=== PATIENT | male | born 1970 | race Two or more races ===

== ENCOUNTER 2022-12-18 23:58 | Inpatient (IN) | payer MEDICAID, OTHER ==
[~2022-12-18] VITALS: Ht 170.2 cm; Wt 115.0 kg
[2022-12-19 00:59] LABS: Basophils # (auto) 0.1 10 ^3/uL (0-0.2); Basophils % (auto) 0.8 % (0.0-2.0); Eosinophils # (auto) 0.2 10 ^3/uL (0-0.8); Eosinophils % (auto) 3.2 % (0.0-7.0); Hematocrit 42.9 % (41.0-53.0); Hemoglobin 14.8 g/dL (13.5-17.5); Lymphocytes # (auto) 1.4 10 ^3/uL (0.4-5.4); Lymphocytes % (auto) 19.2 % (10.0-50.0); Mean Corpuscular Hgb Conc. 34.6 g/dL (32.0-36.0); Mean Corpuscular Volume 92.7 fL (80.0-100.0); Monocytes # (auto) 1.1 10 ^3/uL (0-1.3); Monocytes % (auto) 14.2 % (0.0-12.0); Neutrophils # (auto) 4.7 10 ^3/uL (1.6-8.6); Neutrophils % (auto) 62.6 % (37.0-80.0); Nucleated Red Blood Cells % 0.1 %; Red Blood Cells 4.63 10^6/uL (4.5-5.90); Red Cell Distribution Width 13.2 % (11.8-14.3); White Blood Cell 7.5 10^3/uL (4.4-10.8)
[2022-12-19 01:19] LABS: Albumin 3.3 g/dL (3.4-5.0); BUN/Creatinine Ratio 19.5; Calcium 9.1 mg/dL (8.5-10.1); Potassium 3.9 mmol/L (3.5-5.1)
[2022-12-19 01:22] LABS: Bilirubin, Total 0.8 mg/dL (0.2-1.0); Total Protein 7.1 g/dL (6.4-8.2)
[2022-12-19] MEDS ORDERED: amLODIPine BESYLATE 5 MG TAB PO ONE (01:30)
[2022-12-19] MEDS ORDERED: ASPirin 81 mg TAB PO ONE (02:00)
[2022-12-19] MEDS ORDERED: cefTRIAXone 1GM/50ML D5W 50 ML IV ONE (02:00)
[2022-12-19] MEDS ORDERED: FUROSEMIDE 20 MG/2 ML VIAL IV ONE (02:00)
[2022-12-19] MEDS ORDERED: AZITHROMYCIN 250 MG TAB PO ONE (02:30)
[2022-12-19 04:09] LABS: Urine Bacteria NONE SEEN /hpf (None Seen); Urine Blood Negative /uL (Negative); Urine Specific Gravity 1.011 (1.001-1.035); Urine WBC <1 /hpf (0 - 3)
[2022-12-19] MEDS ORDERED: NITROGLYCERIN 0.4 MG SL TAB SL PRN (06:30)
[2022-12-19] MEDS ORDERED: ACETAMINOPHEN 325 MG TAB PO PRN (06:30)
[2022-12-19] MEDS ORDERED: TEMAZEPAM 15 MG CAP PO PRN (06:30)
[2022-12-19] MEDS ORDERED: hydrALAZINE HCL 20 MG/ML VL IV PRN (06:30)
[2022-12-19] MEDS ORDERED: HYDROcodone-ACET 5/325MG TAB PO PRN (06:30)
[2022-12-19] MEDS ORDERED: DEXTROSE (50%) 50ML SYRG IV PRN (06:30)
[2022-12-19] MEDS ORDERED: MORPHINE SULFATE INJ 2 MG/ml SYRG IV PRN (06:30)
[2022-12-19] MEDS ORDERED: ONDANSETRON HCL 4 MG/2 ML VIAL IV PRN (06:30)
[2022-12-19] MEDS: ACCU-CHEK COMFORT CURVE STRIP VI SCH ×4 (06:49→22:00)
[2022-12-19] MEDS: InsuLIN REG 1unit/0.01ml Soln (100units/ml) SC SCH ×4 (06:53→22:00)
[2022-12-19] MEDS ORDERED: cefTRIAXone 1GM/50ML D5W 50 ML IV SCH (09:00)
[2022-12-19] MEDS ORDERED: FUROSEMIDE 40 MG TAB PO SCH (10:00)
[2022-12-19] MEDS ORDERED: AZITHROMYCIN 500MG/ 250ML 250 ML IV SCH (10:00)
[2022-12-19] MEDS ORDERED: ASPirin 81 mg TAB PO SCH (10:00)
[2022-12-19] MEDS: ENOXAPARIN SOD 40 MG/0.4 ML SYRINGE SC SCH (10:25)
[2022-12-19] MEDS: PANTOPRAZOLE 40 MG TAB PO SCH (10:26)
[2022-12-19] MEDS: CARVEDILOL 3.125 MG TAB PO SCH ×2 (10:27→22:34)
[2022-12-19] MEDS: LISINOPRIL 10 MG TAB PO SCH (10:27)
[2022-12-19] MEDS ORDERED: ATORVASTATIN 20 MG TAB PO SCH (22:00)
[2022-12-19] MEDS: ATORVASTATIN 20 MG TAB PO SCH (22:32)
[2022-12-19 23:00] VITALS: BP 162/97
[2022-12-20 05:00] VITALS: BP 178/103
[2022-12-20 06:11] LABS: Basophils # (auto) 0.1 10 ^3/uL (0-0.2); Basophils % (auto) 1.2 % (0.0-2.0); Eosinophils # (auto) 0.3 10 ^3/uL (0-0.8); Eosinophils % (auto) 3.4 % (0.0-7.0); Hematocrit 42.2 % (41.0-53.0); Hemoglobin 14.8 g/dL (13.5-17.5); Lymphocytes # (auto) 1.4 10 ^3/uL (0.4-5.4); Mean Corpuscular Hemoglobin 32.3 pg (28.0-32.0); Mean Corpuscular Volume 92.3 fL (80.0-100.0); Monocytes # (auto) 1.2 10 ^3/uL (0-1.3); Monocytes % (auto) 11.8 % (0.0-12.0); Neutrophils % (auto) 69.6 % (37.0-80.0); Nucleated Red Blood Cells % 0.5 %; Red Blood Cells 4.57 10^6/uL (4.5-5.90); White Blood Cell 10.1 10^3/uL (4.4-10.8)
[2022-12-20] MEDS: InsuLIN REG 1unit/0.01ml Soln (100units/ml) SC SCH ×4 (06:21→21:45)
[2022-12-20] MEDS: ACCU-CHEK COMFORT CURVE STRIP VI SCH ×4 (06:21→21:39)
[2022-12-20] MEDS ORDERED: cloNIDine HCL 0.1 MG TAB PO ONE (06:30)
[2022-12-20 06:32] LABS: Potassium 3.7 mmol/L (3.5-5.1)
[2022-12-20 06:40] LABS: Albumin 3.5 g/dL (3.4-5.0); BUN/Creatinine Ratio 17.1; Bilirubin, Total 1.1 mg/dL (0.2-1.0); Calcium 8.6 mg/dL (8.5-10.1); Total Protein 6.6 g/dL (6.4-8.2)
[2022-12-20 09:00] VITALS: BP 185/121
[2022-12-20] MEDS: FUROSEMIDE 40 MG/4 ML VIAL IV SCH (09:08)
[2022-12-20] MEDS: ASPirin 81 mg TAB PO SCH (09:08)
[2022-12-20] MEDS: ENOXAPARIN SOD 40 MG/0.4 ML SYRINGE SC SCH (09:08)
[2022-12-20] MEDS: LISINOPRIL 10 MG TAB PO SCH (09:09)
[2022-12-20] MEDS: CARVEDILOL 3.125 MG TAB PO SCH ×2 (09:09→21:39)
[2022-12-20] MEDS: PANTOPRAZOLE 40 MG TAB PO SCH (09:09)
[2022-12-20] MEDS ORDERED: LISINOPRIL 20 MG TAB PO ONE (11:45)
[2022-12-20 12:54] VITALS: BP 155/73
[2022-12-20] MEDS ORDERED: TAMSULOSIN HYDROCHLORIDE 0.4 MG CAP PO SCH (18:00)
[2022-12-20] MEDS: ATORVASTATIN 20 MG TAB PO SCH (21:38)
[2022-12-20 22:00] VITALS: BP 151/76
[2022-12-21 05:00] VITALS: BP 165/99
[2022-12-21] MEDS: InsuLIN REG 1unit/0.01ml Soln (100units/ml) SC SCH ×3 (06:18→17:00)
[2022-12-21] MEDS: ACCU-CHEK COMFORT CURVE STRIP VI SCH ×3 (06:18→17:00)
[2022-12-21 06:27] LABS: Basophils # (auto) 0 10 ^3/uL (0-0.2); Basophils % (auto) 0.6 % (0.0-2.0); Eosinophils # (auto) 0.3 10 ^3/uL (0-0.8); Eosinophils % (auto) 3.4 % (0.0-7.0); Hematocrit 41.3 % (41.0-53.0); Hemoglobin 14.5 g/dL (13.5-17.5); Lymphocytes # (auto) 1.2 10 ^3/uL (0.4-5.4); Lymphocytes % (auto) 14.9 % (10.0-50.0); Mean Corpuscular Hemoglobin 31.9 pg (28.0-32.0); Mean Corpuscular Volume 91.1 fL (80.0-100.0); Monocytes # (auto) 1.1 10 ^3/uL (0-1.3); Monocytes % (auto) 13.4 % (0.0-12.0); Neutrophils # (auto) 5.4 10 ^3/uL (1.6-8.6); Neutrophils % (auto) 67.7 % (37.0-80.0); Red Blood Cells 4.53 10^6/uL (4.5-5.90); Red Cell Distribution Width 12.9 % (11.8-14.3)
[2022-12-21 06:46] LABS: Albumin 3.4 g/dL (3.4-5.0); Calcium 8.5 mg/dL (8.5-10.1); Potassium 3.5 mmol/L (3.5-5.1)
[2022-12-21 06:52] LABS: BUN/Creatinine Ratio 17.9; Total Protein 6.7 g/dL (6.4-8.2)
[2022-12-21] MEDS ORDERED: EMPAGLIFLOZIN 10 MG TAB PO SCH (07:00)
[2022-12-21 08:00] VITALS: BP 177/96
[2022-12-21] MEDS: FUROSEMIDE 40 MG/4 ML VIAL IV SCH (08:34)
[2022-12-21] MEDS: ENOXAPARIN SOD 40 MG/0.4 ML SYRINGE SC SCH (08:34)
[2022-12-21] MEDS: ASPirin 81 mg TAB PO SCH (08:35)
[2022-12-21] MEDS: CARVEDILOL 3.125 MG TAB PO SCH (08:36)
[2022-12-21] MEDS: PANTOPRAZOLE 40 MG TAB PO SCH (08:39)
[2022-12-21 09:00] VITALS: BP 177/96
[2022-12-21] MEDS ORDERED: SPIRONOLACTONE 25 MG TAB PO SCH (10:00)
[2022-12-21] MEDS ORDERED: LISINOPRIL 20 MG TAB PO SCH (10:00)
[2022-12-21] MEDS ORDERED: NITROGLYCERIN 0.2MG/HR TOPICAL PATCH TD SCH (10:00)
[2022-12-21] MEDS ORDERED: EMPA1TAB PO (11:02)
[2022-12-21] MEDS ORDERED: AMLO-496 PO (11:02)
[2022-12-21] MEDS ORDERED: ATOR20TA50 PO (11:02)
[2022-12-21] MEDS ORDERED: ASPI-325 PO (11:02)
[2022-12-21] MEDS ORDERED: NALT50TA27 PO (11:02)
[2022-12-21] MEDS ORDERED: PANT40T PO (11:02)
[2022-12-21] MEDS ORDERED: FURO1TAB33 GT (11:02)
[2022-12-21] MEDS ORDERED: CAR3125T PO (11:02)
[2022-12-21] MEDS ORDERED: LISI20TA28 PO (11:02)
[2022-12-21] MEDS ORDERED: SPIR25TA PO (11:02)
[2022-12-21] MEDS ORDERED: TAM04C PO (11:02)
[2022-12-21] MEDS ORDERED: TAMS0.4C36 PO (11:03)
[2022-12-21] MEDS ORDERED: hydrALAZINE HCL 20 MG/ML VL IV ONE (12:30)
[2022-12-21] MEDS ORDERED: hydrALAZINE HCL 20 MG/ML VL IV PRN (12:30)
[2022-12-21 13:00] VITALS: BP 158/91
[2022-12-21 14:43] VITALS: BP 159/95
[2022-12-21 15:22] LABS: Alcohol, Urine < 3.0 mg/dL (0-10); Amphetamine Screen, Urine NEGATIVE (NEGATIVE); Barbiturate Scree,Urine NEGATIVE (NEGATIVE); Benzodiazephine Screen, Urine NEGATIVE (NEGATIVE); Cannabinoid Screen, Urine NEGATIVE (NEGATIVE); Cocaine Screen, Urine NEGATIVE (NEGATIVE); Opiate Scree,Urine NEGATIVE (NEGATIVE); Phencyclidine Screen, Urine NEGATIVE (NEGATIVE)
[2022-12-21] MEDS ORDERED: FUROSEMIDE 40 MG TAB PO SCH (18:00)
[2022-12-21] MEDS ORDERED: CARVEDILOL 12.5 MG TAB PO SCH (22:00)
== END 2022-12-21 17:30 | disposition home or self-care (01) | DRG 194 ==
LOC: ER 12-19 00:01 → TELE 12-19 06:21 → TELE-EAST 12-19 21:55
PROVIDERS: ADMIT Nurse Practitioner; ATTEND Student in an Organized Health Care Education/Training Program
DX: I13.0 Hypertensive heart and chronic kidney disease with heart failure and stage 1 through stage 4 chronic kidney disease, or unspecified chronic kidney disease (principal); E11.22 Type 2 diabetes mellitus with diabetic chronic kidney disease; E11.65 Type 2 diabetes mellitus with hyperglycemia; E78.5 Hyperlipidemia, unspecified; N18.9 Chronic kidney disease, unspecified; E66.01 Morbid (severe) obesity due to excess calories; Z68.39 Body mass index [BMI] 39.0-39.9, adult; I16.0 Hypertensive urgency; Z20.822 Contact with and (suspected) exposure to COVID-19; I50.43 Acute on chronic combined systolic (congestive) and diastolic (congestive) heart failure; N18.31 Chronic kidney disease, stage 3a; N40.1 Benign prostatic hyperplasia with lower urinary tract symptoms; Z79.84 Long term (current) use of oral hypoglycemic drugs; Z82.49 Family history of ischemic heart disease and other diseases of the circulatory system; Z91.199 Patient's noncompliance with other medical treatment and regimen due to unspecified reason; Z83.3 Family history of diabetes mellitus
CPT/HCPCS: 36415; 71045; 71250; 74176; 78226; 80053; 80061; 80307; 80320; 81001; 82962; 83036; 83690; 83880; 84484; 85025; 87426; 93005; 93306; 96365; 96368; 96372; 96375; G0378; J0696; J1815

== ENCOUNTER 2023-05-23 22:49 | Inpatient (IN) | payer MEDICAID ==
[~2023-05-23] VITALS: Ht 170.2 cm; Wt 113.5 kg
[~2023-05-23 22:49] MED LIST: AMLO1TAB23 PO; ASPI-325 PO; ATOR20TA50 PO; CAR3125T PO; EMPA1TAB PO; FURO1TAB33 GT; LISI20TA56 PO; NALT50TA27 PO; PANT40T PO; SPIR25TA PO; TAMS-35 PO; TAMS0.4C36 PO
[2023-05-23] MEDS ORDERED: cloNIDine HCL 0.1 MG TAB PO ONE (23:30)
[2023-05-23] MEDS ORDERED: diazePAM 5 MG TAB PO ONE (23:45)
[2023-05-23] MEDS ORDERED: LORazepam 2MG/ML-1ML VIAL IV ONE (23:45)
[2023-05-23] MEDS: SODIUM CHLORIDE 0.9% 1,000 ML IV ONE (23:45)
[2023-05-24 00:04] LABS: Basophils # (auto) 0 10 ^3/uL (0-0.2); Basophils % (auto) 0.4 % (0.0-2.0); Eosinophils # (auto) 0.2 10 ^3/uL (0-0.8); Eosinophils % (auto) 2.9 % (0.0-7.0); Hematocrit 46.6 % (41.0-53.0); Hemoglobin 16.2 g/dL (13.5-17.5); Lymphocytes # (auto) 1.8 10 ^3/uL (0.4-5.4); Mean Corpuscular Hemoglobin 31.5 pg (28.0-32.0); Mean Corpuscular Hgb Conc. 34.8 g/dL (32.0-36.0); Mean Corpuscular Volume 90.5 fL (80.0-100.0); Monocytes # (auto) 1.4 10 ^3/uL (0-1.3); Monocytes % (auto) 17.5 % (0.0-12.0); Neutrophils # (auto) 4.7 10 ^3/uL (1.6-8.6); Neutrophils % (auto) 57.2 % (37.0-80.0); Nucleated Red Blood Cells % 0.1 %; Red Blood Cells 5.14 10^6/uL (4.5-5.90); Red Cell Distribution Width 13.6 % (11.8-14.3); White Blood Cell 8.2 10^3/uL (4.4-10.8)
[2023-05-24 00:16] LABS: Albumin 3.7 g/dL (3.4-5.0); Calcium 9.1 mg/dL (8.5-10.1); Potassium 3.1 mmol/L (3.5-5.1)
[2023-05-24] MEDS: SODIUM CHLORIDE 0.9% 1,000 ML IV ONE (00:26)
[2023-05-24] MEDS ORDERED: NITROGLYCERIN 0.4 MG SL TAB SL ONE ×2 (00:45→03:45)
[2023-05-24] MEDS ORDERED: ASPirin 81 mg TAB PO ONE (00:45)
[2023-05-24 00:56] LABS: BUN/Creatinine Ratio 14.2 (10.0-20.0); Bilirubin, Total 0.4 mg/dL (0.2-1.0)
[2023-05-24 01:11] VITALS: RESP 24; O2SAT 95
[2023-05-24 01:53] LABS: Urine Bacteria NONE SEEN /hpf (None Seen); Urine Blood Negative /uL (Negative); Urine Specific Gravity 1.012 (1.001-1.035); Urine WBC 1 /hpf (0 - 3)
[2023-05-24 02:06] LABS: Alcohol, Urine < 3.0 mg/dL (0-10); Amphetamine Screen, Urine POSITIVE (NEGATIVE); Barbiturate Scree,Urine NEGATIVE (NEGATIVE); Cannabinoid Screen, Urine NEGATIVE (NEGATIVE); Cocaine Screen, Urine NEGATIVE (NEGATIVE); Opiate Scree,Urine NEGATIVE (NEGATIVE); Phencyclidine Screen, Urine NEGATIVE (NEGATIVE)
[2023-05-24 02:28] LABS: Benzodiazephine Screen, Urine NEGATIVE (NEGATIVE)
[2023-05-24] MEDS ORDERED: hydrALAZINE HCL 20 MG/ML VL IV ONE (03:00)
[2023-05-24] MEDS ORDERED: POTASSIUM CHL 20 Meq TABLET PO ONE (03:15)
[2023-05-24] MEDS ORDERED: FURO40TA4 PO (03:49)
[2023-05-24] MEDS ORDERED: TAMS0.4C36 PO (03:49)
[2023-05-24] MEDS ORDERED: ASPI-498 PO (03:49)
[2023-05-24] MEDS ORDERED: ATO40T PO (03:49)
[2023-05-24] MEDS ORDERED: SPIR25TA8 PO (03:49)
[2023-05-24] MEDS ORDERED: AMLO1TAB22 PO (03:49)
[2023-05-24] MEDS ORDERED: NALT50TA5 PO (03:49)
[2023-05-24] MEDS ORDERED: CARV3.1240 PO (03:49)
[2023-05-24] MEDS ORDERED: LISI40TA16 PO (03:49)
[2023-05-24] MEDS ORDERED: EMPA1TAB PO (03:49)
[2023-05-24] MEDS ORDERED: PANT40T PO (03:49)
[2023-05-24] MEDS ORDERED: DEXTROSE (50%) 50ML SYRG IV PRN (04:30)
[2023-05-24] MEDS ORDERED: hydrALAZINE HCL 20 MG/ML VL IV PRN (04:30)
[2023-05-24] MEDS ORDERED: ENOXAPARIN SOD 100 MG/1 ML SYRINGE SC ONE (04:30)
[2023-05-24] MEDS ORDERED: NITROGLYCERIN 0.4 MG SL TAB SL PRN (04:30)
[2023-05-24] MEDS ORDERED: ACETAMINOPHEN 325 MG TAB PO PRN (04:30)
[2023-05-24] MEDS ORDERED: MORPHINE SULFATE INJ 2 MG/ml SYRG IV PRN (04:30)
[2023-05-24] MEDS ORDERED: ONDANSETRON HCL 4 MG/2 ML VIAL IV PRN (04:30)
[2023-05-24] MEDS ORDERED: amLODIPine BESYLATE 5 MG TAB PO ONE (04:45)
[2023-05-24] MEDS ORDERED: LORazepam 2MG/ML-1ML VIAL IV ONE (05:45)
[2023-05-24] MEDS ORDERED: SODIUM CHLORIDE 0.9% 500 ML IV ONE (05:45)
[2023-05-24] MEDS ORDERED: FUROSEMIDE 40 MG TAB PO SCH (06:00)
[2023-05-24] MEDS ORDERED: NITROGLYCERIN 50MG/250ML 250 ML IV SCH (06:00)
[2023-05-24] MEDS ORDERED: ENALAPRILAT 1.25 MG/ML-1ML VIAL IV ONE (06:15)
[2023-05-24] MEDS: ACCU-CHEK COMFORT CURVE STRIP VI SCH ×4 (06:32→23:43)
[2023-05-24] MEDS: InsuLIN REG 1unit/0.01ml Soln (100units/ml) SC SCH ×4 (06:40→23:51)
[2023-05-24] MEDS ORDERED: amLODIPine BESYLATE 5 MG TAB PO SCH (10:00)
[2023-05-24] MEDS ORDERED: ASPirin 81 mg TAB PO SCH (10:00)
[2023-05-24] MEDS ORDERED: CARVEDILOL 3.125 MG TAB PO SCH (10:00)
[2023-05-24] MEDS: LISINOPRIL 20 MG TAB PO SCH (10:49)
[2023-05-24] MEDS: PANTOPRAZOLE 40 MG TAB PO SCH (10:51)
[2023-05-24] MEDS ORDERED: TAMSULOSIN HYDROCHLORIDE 0.4 MG CAP PO SCH (18:00)
[2023-05-24 19:33] VITALS: PULSE 89; RESP 18; O2SAT 95
[2023-05-24] MEDS: FUROSEMIDE 20 MG/2 ML VIAL IV SCH (19:45)
[2023-05-24] MEDS: amLODIPine BESYLATE 5 MG TAB PO SCH (19:46)
[2023-05-24] MEDS ORDERED: CARVEDILOL 12.5 MG TAB PO SCH (22:00)
[2023-05-24] MEDS ORDERED: ATORVASTATIN 20 MG TAB PO SCH (22:00)
[2023-05-24 22:06] VITALS: BP 147/87; PULSE 99; RESP 20; TEMP 98; O2SAT 94
[2023-05-24 23:55] VITALS: O2SAT 96
[2023-05-25] MEDS ORDERED: PNEUMOCOCCAL VACC POLYS 25 MCG/0.5 ML VIAL IM ONE (01:00)
[2023-05-25 05:00] VITALS: BP 117/74; PULSE 50; RESP 15; TEMP 97.7; O2SAT 95
[2023-05-25] MEDS: FUROSEMIDE 20 MG/2 ML VIAL IV SCH (06:25)
[2023-05-25] MEDS: ACCU-CHEK COMFORT CURVE STRIP VI SCH ×2 (06:30→10:56)
[2023-05-25 06:49] LABS: Basophils # (auto) 0 10 ^3/uL (0-0.2); Basophils % (auto) 0.4 % (0.0-2.0); Eosinophils # (auto) 0.4 10 ^3/uL (0-0.8); Eosinophils % (auto) 5.1 % (0.0-7.0); Hematocrit 44.3 % (41.0-53.0); Hemoglobin 15.8 g/dL (13.5-17.5); Lymphocytes # (auto) 1.3 10 ^3/uL (0.4-5.4); Lymphocytes % (auto) 19.3 % (10.0-50.0); Mean Corpuscular Hemoglobin 31.8 pg (28.0-32.0); Mean Corpuscular Hgb Conc. 35.7 g/dL (32.0-36.0); Monocytes # (auto) 1.1 10 ^3/uL (0-1.3); Monocytes % (auto) 15.5 % (0.0-12.0); Neutrophils # (auto) 4.2 10 ^3/uL (1.6-8.6); Neutrophils % (auto) 59.7 % (37.0-80.0); Nucleated Red Blood Cells % 0.3 %; Red Blood Cells 4.98 10^6/uL (4.5-5.90); Red Cell Distribution Width 13.2 % (11.8-14.3)
[2023-05-25] MEDS: InsuLIN REG 1unit/0.01ml Soln (100units/ml) SC SCH ×2 (06:51→10:59)
[2023-05-25] MEDS ORDERED: EMPAGLIFLOZIN 10 MG TAB PO SCH (07:00)
[2023-05-25 07:24] LABS: Magnesium 2.2 mg/dL (1.6-2.6); Phosphorus 3.6 mg/dL (2.5-4.90)
[2023-05-25 08:00] VITALS: PULSE 86; PULSE 87; RESP 20; O2SAT 96
[2023-05-25 09:00] VITALS: BP 148/84; PULSE 86; RESP 20; TEMP 97.1; O2SAT 96
[2023-05-25] MEDS ORDERED: ASPirin 81 mg TAB PO SCH (10:00)
[2023-05-25] MEDS ORDERED: CARVEDILOL 12.5 MG TAB PO SCH (10:00)
[2023-05-25] MEDS ORDERED: ENOXAPARIN SOD 40 MG/0.4 ML SYRINGE SC SCH (10:00)
[2023-05-25] MEDS: PANTOPRAZOLE 40 MG TAB PO SCH (10:37)
[2023-05-25] MEDS: LISINOPRIL 20 MG TAB PO SCH (10:37)
[2023-05-25] MEDS: amLODIPine BESYLATE 5 MG TAB PO SCH (10:38)
[2023-05-25] MEDS ORDERED: ERGO1CAP23 PO (11:44)
[2023-05-25] MEDS ORDERED: ERGOCALCIFEROL 50,000 UNIT(1.25MG) CAP PO SCH (11:45)
[2023-05-25 14:08] VITALS: BP 151/84; PULSE 84; RESP 19; TEMP 97.6; O2SAT 99
[2023-05-28 10:09] LABS: Hepatitis C Antibody Negative (Negative)
== END 2023-05-25 15:09 | disposition home or self-care (01) | DRG 194 ==
LOC: ER 22:49 → TELE 05-24 05:09 → TELE-CENTR 05-24 22:06
PROVIDERS: ADMIT Internal Medicine; ATTEND Internal Medicine
DX: I11.0 Hypertensive heart disease with heart failure (principal); I21.A1 Myocardial infarction type 2; I42.8 Other cardiomyopathies; E86.0 Dehydration; E11.9 Type 2 diabetes mellitus without complications; I16.1 Hypertensive emergency; I50.23 Acute on chronic systolic (congestive) heart failure; E78.5 Hyperlipidemia, unspecified; I25.5 Ischemic cardiomyopathy; E66.01 Morbid (severe) obesity due to excess calories; F15.129 Other stimulant abuse with intoxication, unspecified; F41.0 Panic disorder [episodic paroxysmal anxiety]; N40.0 Benign prostatic hyperplasia without lower urinary tract symptoms; Z79.84 Long term (current) use of oral hypoglycemic drugs; Z91.199 Patient's noncompliance with other medical treatment and regimen due to unspecified reason; Z82.49 Family history of ischemic heart disease and other diseases of the circulatory system; Z83.3 Family history of diabetes mellitus; Z91.148 Patient's other noncompliance with medication regimen for other reason; Z68.39 Body mass index [BMI] 39.0-39.9, adult
CPT/HCPCS: 36415; 71045; 80053; 80061; 80307; 81001; 82306; 82962; 83036; 83735; 83880; 84100; 84443; 84484; 85025; 86803; 87340; 93005; 93306; 96372; 96374; 96375; G0378; J1815

== ENCOUNTER → 2023-06-20 | Outpatient (CLI) | payer MEDICAID ==
[~2023-06-20] MED LIST changes: -CAR3125T PO; +CARV3.1240 PO; +ERGO1CAP23 PO; -FURO1TAB33 GT; +FURO40TA4 PO; -LISI20TA56 PO; +LISI40TA16 PO; -NALT50TA27 PO; -TAMS-35 PO
== END | disposition home or self-care (01) ==
LOC: LAB 10:43
DX: N40.1 Benign prostatic hyperplasia with lower urinary tract symptoms (principal); E11.8 Type 2 diabetes mellitus with unspecified complications
CPT/HCPCS: 36415; 82043; 82570; 84153